=== PATIENT | female | born 1940 | race Caucasian/White ===

== ENCOUNTER → 2024-07-09 09:16 | Outpatient (REF) | payer OTHER, SELFPAY | LOC: HWRAD 09:16 | PROVIDERS: ATTENDING PHYSICIAN Surgery; FAMILY PHYSICIAN Family Medicine | DX: C18.2 Malignant neoplasm of ascending colon (principal) | CPT/HCPCS: 71260; 74177; Q9967 ==

== ENCOUNTER 2024-07-12 09:03 | Inpatient (IN) | payer OTHER, SELFPAY ==
[2024-07-08 08:42] VITALS: BMI 26.7
[2024-07-08 08:58] LABS: Hematocrit 31.9 % (37.0-47.0); Mean Corp Hgb Conc. 31.3 g/dL (33.0-37.0); Mean Corpuscular Hgb 24.8 pg (27.0-31.0); Mean Corpuscular Volume 79.2 fL (81.0-99.0); Mean Platelet Volume 9.5 fL (7.4-10.4); Platelet Count 298 10^3/uL (130-400); Red Blood Cell Count 4.03 10^6/uL (4.20-5.40); Red Cell Dist. Width 19.6 % (11.5-14.5); White Blood Cell Count 4.8 10^3/uL (4.8-10.8)
[2024-07-08 09:02] LABS: INR 1.15; PT 14.5 Sec (11.4-14.6)
[2024-07-08 09:03] LABS: APTT 38.1 Sec (23.4-35.0)
[2024-07-08 09:26] LABS: ALT (SGPT) 18 U/L (0-35); AST (SGOT) 28 U/L (14-36); Alkaline Phosphatase 65 U/L (38-126); Blood Urea Nitrogen 13 mg/dl (7-17); Carbon Dioxide 29 mmol/L (22-30); Chloride 98 mmol/L (98-107); Estimated Creatinine Clearance 46 ml/min; Glucose 100 mg/dl (70-99); Potassium 3.6 mmol/L (3.5-5.1); Sodium 138 mmol/L (135-145); Total Bilirubin 0.7 mg/dl (0.2-1.3); Total Protein 6.4 g/dl (6.3-8.2); eGFR > 60.00
[2024-07-08 09:31] LABS: Glycohemoglobin (HgbA1c) 5.5 % (4.0-5.6)
[2024-07-08 09:51] LABS: CEA 2.52 ng/ml
[2024-07-12] VITALS (14 sets, daily range): BP systolic 102–141; BP diastolic 53–76; BMI 26.7
[2024-07-12] MEDS: HEPARIN 5000 UNITS SC (09:40)
[2024-07-12] MEDS: ENTEREG 12 MG PO (09:40)
[2024-07-12] MEDS: TYLENOL 1000 MG PO (09:41)
--- NOTE | 2024-07-12 13:39 | W.OR.COLCA ---
Colon Cancer Post Op Note
Immediate Post Op
Primary Surgeon: Johan Kelly MD
Assistants: JEFF Carvajal & NORMA Malave
Pre-op Diagnosis: Ascending colon cancer
Post-op Diagnosis: Same
Procedure Performed: Robotic right colectomy with intracorporeal anastomosis
Anesthesia Type: GET
Specimen / Cultures: Right colon
Estimated Blood Loss: 10cc
Complications: None
Operative Findings: No evidence of metastatic disease
Bulky tumor of the ascending colon
Multiple hepatic hemangiomas
Small right indirect inguinal hernia
Small right Spigelian hernia
Isoperistaltic intracorporeal anastomosis
Colon Resection
Colon Resection
Operation performed with curative intent: Yes
Tumor Location: Ascending Colon
Right Hemicolectomy: Ileocolic and Right Colic
[2024-07-12] MEDS: TORADOL 15 MG IV ×2 (14:43→20:53)
--- NOTE | 2024-07-12 15:45 | PTCARENOTE ---
Pt received from the PACU via bed. Transport was w/o incident. Pt is Awake, oriented X3, and sl drowsy. Pt's deines nausea, or pain at this time. VSS, Pt is afebrile, Pt's Abd with 4 Lap sites, and one lower abd transverse inc. C/D/I, well
approximated, no drainage noted. Pt with bernardo Cath draining clear, yellow urine. Pt instructed on plan of care. Pt verbalized understanding of instructions, Call ellison is within reach.
[2024-07-12] MEDS: TYLENOL PO (18:44)
[2024-07-12] MEDS: TYLENOL 650 MG PO ×2 (18:44→23:50)
[2024-07-13] MEDS: TORADOL 15 MG IV ×3 (02:51→19:38)
[2024-07-13 03:06] VITALS: BP 101/50
[2024-07-13] MEDS: TYLENOL PO (03:58)
[2024-07-13 05:24] VITALS: BMI 26.2
[2024-07-13 05:44] LABS: % Basophils 0.2 % (0-2); % Immature Granulocytes 0.5 % (0-0.5); % Lymphocytes 9.5 % (20.5-51.1); % Monocytes 6.5 % (1.7-9.3); % Neutrophils 83.3 % (42.2-75.2); Absolute Immature Granulocytes 0.1 10^3/uL (0-0.05); Absolute Lymphocytes 0.9 10^3/uL (1.2-3.4); Absolute Monocytes 0.6 10^3/uL (0.1-0.6); Absolute Neutrophils 8.1 10^3/uL (1.4-6.5); Hemoglobin 9.2 g/dL (12.0-16.0); Mean Corp Hgb Conc. 30.7 g/dL (33.0-37.0); Mean Corpuscular Hgb 24.4 pg (27.0-31.0); Mean Corpuscular Volume 79.6 fL (81.0-99.0); Mean Platelet Volume 8.9 fL (7.4-10.4); Nucleated Red Blood Cells % 0 %; Platelet Count 321 10^3/uL (130-400); Red Blood Cell Count 3.77 10^6/uL (4.20-5.40); Red Cell Dist. Width 19.6 % (11.5-14.5); White Blood Cell Count 9.8 10^3/uL (4.8-10.8)
[2024-07-13 06:11] LABS: Blood Urea Nitrogen 12 mg/dl (7-17); Calcium 8.7 mg/dl (8.4-10.2); Carbon Dioxide 29 mmol/L (22-30); Chloride 100 mmol/L (98-107); Estimated Creatinine Clearance 52 ml/min; Glucose 107 mg/dl (70-99); Potassium 3.6 mmol/L (3.5-5.1); Sodium 138 mmol/L (135-145); eGFR > 60.00
[2024-07-13 07:15] VITALS: BP 108/56
[2024-07-13] MEDS: CRESTOR 10 MG PO (08:12)
[2024-07-13] MEDS: ENTEREG 12 MG PO ×2 (08:13→19:37)
[2024-07-13] MEDS: ORETIC 25 MG PO (08:13)
[2024-07-13] MEDS: TYLENOL 650 MG PO ×5 (08:13→23:00)
--- NOTE | 2024-07-13 08:40 | W.PN.GS2 ---
Today's Communication / Plan
-
Follow on clear liquids
Assessment / Plan
-
83 yo female with ascending colon ca now POD #1 robotic right colectomy
AFVSS
Following expected post operative course
Await bowel recovery
--Continue clear liquids
--OOB ambulate
--D/C bernardo for voiding trial
--IVF until tolerating PO intake
--Scheduled tylenol/toradol and prn dilaudid/oxycodone
--SCD's and lovenox for VTE ppx
Subjective Data
-
Date of Service: July 13, 2024
Patient seen and examined at bedside with Dr. Esquivel Denjordyn n/v. Not yet passing flatus. Pain well managed and minimal.
Objective Data
-
Intake and Output
07/12/24 07/13/24 07/14/24
06:59 06:59 06:59
Intake Total 680 / 680
Output Total 600 / 600
Balance 80 / 80
Intake:
Oral fluids 480 / 480
IV fluids (Total) 200 / 200
Norm 200 / 200
Output:
Urine, Bernardo 600 / 600
Vital Signs
Temp Pulse Resp BP Pulse Ox
97.8 F 66 16 108/56 94
07/13/24 07:15 07/13/24 07:15 07/13/24 07:15 07/13/24 07:15 07/13/24 07:15
Lab Results
07/13/24 05:21
07/13/24 05:21
Calcium 8.7 mg/dl (8.4-10.2) 07/13/24 05:21
Total Bilirubin 0.7 mg/dl (0.2-1.3) 07/08/24 07:57
AST 28 U/L (14-36) 07/08/24 07:57
ALT 18 U/L (0-35) 07/08/24 07:57
Alkaline Phosphatase 65 U/L (38-126) 07/08/24 07:57
Total Protein 6.4 g/dl (6.3-8.2) 07/08/24 07:57
Albumin 4.0 g/dl (3.5-5.0) 07/08/24 07:57
Physical Exam
-
NAD
ABD softly distended, mild tenderness, SBA UNDERWRITER
Incisions clear, dry, intact glue without erythema
[2024-07-13 09:15] VITALS: BP 128/66; PULSE 65; O2SAT 95
[2024-07-13] MEDS: LR 1000 IV (09:47)
[2024-07-13 11:25] VITALS: BP 131/66
[2024-07-13] MEDS: TORADOL IV (14:24)
[2024-07-13 15:00] VITALS: BP 115/66
[2024-07-13] MEDS: LOVENOX 40 MG SC (17:23)
[2024-07-13 23:07] VITALS: BP 125/63
[2024-07-14] MEDS: TORADOL 15 MG IV ×2 (01:10→08:10)
[2024-07-14] MEDS: TYLENOL 650 MG PO ×3 (03:00→11:35)
[2024-07-14 05:18] LABS: Hematocrit 29.2 % (37.0-47.0); Hemoglobin 8.8 g/dL (12.0-16.0); Mean Corp Hgb Conc. 30.1 g/dL (33.0-37.0); Mean Corpuscular Hgb 24.4 pg (27.0-31.0); Mean Corpuscular Volume 80.9 fL (81.0-99.0); Mean Platelet Volume 9.1 fL (7.4-10.4); Platelet Count 316 10^3/uL (130-400); Red Blood Cell Count 3.61 10^6/uL (4.20-5.40); Red Cell Dist. Width 19.3 % (11.5-14.5); White Blood Cell Count 7.2 10^3/uL (4.8-10.8)
[2024-07-14 05:40] LABS: Blood Urea Nitrogen 9 mg/dl (7-17); Calcium 8.5 mg/dl (8.4-10.2); Carbon Dioxide 30 mmol/L (22-30); Chloride 100 mmol/L (98-107); Estimated Creatinine Clearance 45 ml/min; Glucose 87 mg/dl (70-99); Potassium 3.9 mmol/L (3.5-5.1); Sodium 138 mmol/L (135-145); eGFR > 60.00
[2024-07-14 06:15] VITALS: BMI 26.2
[2024-07-14 07:09] VITALS: BP 150/78
[2024-07-14] MEDS: ORETIC 25 MG PO (08:10)
[2024-07-14] MEDS: CRESTOR 10 MG PO (08:10)
[2024-07-14] MEDS: ENTEREG PO (08:10)
--- NOTE | 2024-07-14 08:26 | W.PN.GS2 ---
Today's Communication / Plan
-
Advance diet
dispo planning
Assessment / Plan
-
83 yo female with ascending colon ca now POD #2 robotic right colectomy
AFVSS
Following expected post operative course
+flatus/stools, minimal distention
Acute on chronic anemia present secondary to hemodilution and expected GI losses
--Advance to LRD
--OOB ambulate/appreciate PT eval
--Scheduled tylenol/toradol and prn dilaudid/oxycodone
--SCD's and lovenox for VTE ppx
Tentative d/c later today vs tomorrow pending diet tolerance
Subjective Data
-
Date of Service: July 14, 2024
Patient seen and examined at bedside with Dr. Fournier. Vannesa n/v. Has had occasional belching. Passing small loose stools with episodes of flatus. Voiding without difficulty.
Objective Data
-
Intake and Output
07/13/24 07/14/24 07/15/24
06:59 06:59 06:59
Intake Total 680 / 680 0 / 2320
Output Total 600 / 600 250 / 250
Balance 80 / 80 2069 / 2069
Intake:
Oral fluids 480 / 480 0 / 0
IV fluids (Total) 200 / 200
Norm 200 / 200
Output:
Urine, Neal 600 / 600 200 / 200
Urine, Voided 50 / 50
Other:
Number of approximated SMALL 2
amounts of urine
Number of approximated MODERATE 3
amounts of urine
Number of unmeasured liquid
stools
Rectum 3
Vital Signs
Temp Pulse Resp BP Pulse Ox
97.8 F 75 16 150/78 95
07/14/24 07:09 07/14/24 07:09 07/14/24 07:09 07/14/24 07:09 07/14/24 07:09
Lab Results
07/14/24 04:05
07/14/24 04:05
Calcium 8.5 mg/dl (8.4-10.2) 07/14/24 04:05
Total Bilirubin 0.7 mg/dl (0.2-1.3) 07/08/24 07:57
AST 28 U/L (14-36) 07/08/24 07:57
ALT 18 U/L (0-35) 07/08/24 07:57
Alkaline Phosphatase 65 U/L (38-126) 07/08/24 07:57
Total Protein 6.4 g/dl (6.3-8.2) 07/08/24 07:57
Albumin 4.0 g/dl (3.5-5.0) 07/08/24 07:57
Physical Exam
-
NAD
ABD soft, mildly distended (improved), mild tenderness, TUBULAR RIVETER
Incisions clear, dry, intact glue without erythema
--- NOTE | 2024-07-14 10:34 | CM ---
Met with pt at bedside
Pt reports she lives in a 2 story home with her grandsons; 4 steps to enter, FF set-up. Has elevator access from garage
Independent at baseline, no device with ambulation, drives
DME - none
SNF/HH - no past hx
Has ride at discharge
PCP - Tosin Pratt
Pharm - [facility]
Plan - anticipate home no needs
[2024-07-14] MEDS: TORADOL IV (13:11)
--- NOTE | 2024-07-14 13:48 | W.DCSUMMARY ---
Discharge Summary
Discharge Data
Date of Admission: 07/12/24
Date of Discharge: 07/14/24
-
Pending Results: No
Hospital Course
Ms Boudreaux is an 83 yo female with a history of ascending colon cancer who presented for scheduled robotic colectomy for management. She tolerated the procedure well. Post operatively, her diet was able to be advanced and well tolerated with good
bowel recovery. She had minimal post operative discomfort and did not require narcotic analgesics. She was discharged to home with her grandchildren with instructions for post surgical care and follow up.
Discharge Plan
-
Patient Disposition: Home (Routine Discharge)
Discharge Diagnosis/Procedures: Robotic right colectomy
Condition: Good
Diet: Low Fiber
Activity: No strenuous activity
Additional Activity: Do not lift over 10lbs (gallon of milk)
Driving Restrictions: Wait until no longer sore and off narcotics
Bathing Restrictions: OK to Shower
Wound Care: Wash incisions gently with soap and water. Avoid scrubbing or picking off the glue. Allow the glue to fall off on its own over the next 2-3 weeks. Do not apply lotions or creams to your incisions.
Activity Restrictions/Additional Instructions:
Call your surgeon if you have fever >100.5, nausea with vomiting or worsening abdominal pain
Instructions: Low Fiber Diet
Referrals:
Olivier Kelly MD [Active] - in two to three weeks
Tosin Pratt MD [Family Provider] -
Prescriptions:
New
acetaminophen [acetaminophen] 325 mg tablet
650 mg PO Q4HPRN PRN (Reason: mild pain) Qty: 1 0RF
ibuprofen 200 mg tablet
400 - 600 mg PO Q6HPRN PRN (Reason: moderate pain) Qty: 1 0RF
Continued
vitamin B complex Tablet
1 tab PO DAILY
hydrochlorothiazide 25 mg Tablet
25 mg PO DAILY
rosuvastatin 10 mg Tablet
10 mg PO DAILY
Heal And Sooth
3 cap PO DAILY
Slow Fe
1 tab PO DAILY
Discontinued
metronidazole 500 mg Tablet
500 mg PO DIRECTED
neomycin 500 mg Tablet
1 g PO DIRECTED
Sutab 1.479-0.188- 0.225 gram Tablet
0 tab PO PER PKG DIR
Discharge Orders:
Discharge Patient (As Directed); Ordered 07/14/24
Ordered By: Mirta Verma
Discharge Date and Time
Print Language: DANISH
[2024-07-14 14:22] VITALS: BP 133/70
== END 2024-07-14 14:58 | disposition home or self-care (01) | DRG 330 ==
LOC: 2 SOUTH 09:03
PROVIDERS: Registered Nurse; ADMITTING PHYSICIAN Surgery; FAMILY PHYSICIAN Family Medicine
PROC: 0DBF4ZZ Excision of Right Large Intestine, Percutaneous Endoscopic Approach (ICD-10-PCS; 2024-07-12)
DX: C18.2 Malignant neoplasm of ascending colon (principal); D58.9 Hereditary hemolytic anemia, unspecified; K40.90 Unilateral inguinal hernia, without obstruction or gangrene, not specified as recurrent; D18.03 Hemangioma of intra-abdominal structures
CPT/HCPCS: 88309; 36415; 80048; 80053; 82378; 83036; 85025; 85027; 85610; 85730; 86850; 86900; 86901; 88342; 93005; 97162; J1335